=== PATIENT | male | born 1930 | race Caucasian/White ===

== ENCOUNTER → 2016-08-20 | Outpatient (CLI) | payer MEDICARE, MEDICAID ==
[~2016-08-20] MED LIST: ACIFEX; ASPI-84; ERGO400C PO; FLAXSEED OIL; IBP600T1; LISI20TA PO; OMG1KC; ONDAN4ODT PO; SCOP1PAT TD; UBID100C8
== END ==
LOC: FS 13:26
PROVIDERS: ATTEND Internal Medicine Hematology & Oncology
DX: D50.0 Iron deficiency anemia secondary to blood loss (chronic) (principal); Z85.048 Personal history of other malignant neoplasm of rectum, rectosigmoid junction, and anus; Z85.46 Personal history of malignant neoplasm of prostate; Z79.899 Other long term (current) drug therapy
CPT/HCPCS: 99213

== ENCOUNTER 2020-11-27 16:35 | Inpatient (IN) | payer MEDICAID, MEDICARE ==
[2020-11-27] VITALS (14 sets, daily range): BP systolic 156–186; BP diastolic 74–104
[~2020-11-27] VITALS: Ht 175 cm; Wt 90.0 kg
[~2020-11-27 16:35] MED LIST changes: -ASPI-84; +ASPI-84 PO
--- NOTE | 2020-11-27 16:49 | ED Cough/URI ---
General Chief Complaint: Fever-Adult/Adol Stated Complaint: LATHARGIC Source: patient Exam Limitations: no limitations History of Present Illness Date Seen by Provider: Nov 27, 2020 Time Seen by Provider: 16:47 Initial Comments To ER with reports that he is lethargic. He was initially seen at [facility] [place] [facility] urgent care where he was found to be febrile at 101.2 and to have a cough. His oxygen saturation was noted to be 88%. They establish an IV and hung a liter of fluids which are infusing upon arrival to ER. Patient tested negative for Covid there. He had both Covid vaccinations most recently in July of this year. Timing/Duration: constant Severity/Quality: mild Associated Symptoms: cough Allergies and Home Medications Allergies Coded Allergies: Niacin (Verified Allergy, Unknown, 12/27/08) Penicillins (Verified Allergy, Unknown, 12/27/08) Snvmpbz-Lte-Xoa Reductase Inhibitor (Verified Allergy, Unknown, 12/27/08) Sulfa (Sulfonamide Antibiotics) (Verified Allergy, Unknown, 12/27/08) Home Medications Ondansetron Hcl 4 Mg Tab, 4 MG PO Q4H FOR NAUSEA AND VOMITING Prescribed by: NIRANJAN OTT on 06/04/112139 Scopolamine Hcl 1 Patch .72 H Patch.td72, 1 EA TD Q3D FOR DIZZINESS Prescribed by: NIRANJAN OTT on 06/04/112139 Patient Home Medication List Home Medication List Reviewed: Yes Review of Systems Review of Systems Constitutional: see HPI, fever EENTM: see HPI Respiratory: see HPI, cough Genitourinary: no symptoms reported Musculoskeletal: no symptoms reported Skin: no symptoms reported Psychiatric/Neurological: No Symptoms Reported Hematologic/Lymphatic: No Symptoms Reported Physical Exam Vital Signs - First Documented 11/27/20 11/27/20 16:42 16:57 Temp 37.5 Pulse 76 Resp 20 B/P (MAP) 94/48 (63) Pulse Ox 96 O2 Delivery Room Air O2 Flow Rate 2.00 Capillary Refill : Height: '" Weight: lbs. oz. kg; BMI Method: General Appearance: WD/WN, no apparent distress, other (Upon arrival to ER he is alert conversing with us appropriately and pleasant. He states that he feels fine and is not sure why he is here. His blood pressure is 76/40. IV fluids are infusing. There is no pedal edema. 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 Bowel sounds are normal and abdomen is nontender.) Eyes: Bilateral Eye Normal Inspection, Bilateral Eye PERRL, Bilateral Eye EOMI HEENT: PERRL/EOMI, normal ENT inspection Neck: non-tender, full range of motion Respiratory: no respiratory distress, no accessory muscle use, crackles (Bibasilar) Extremities: normal range of motion, non-tender; No pedal edema Neurologic/Psychiatric: alert, normal mood/affect Skin: normal color, warm/dry Focused Exam Lactate Level 11/27/20 16:48: Lactic Acid Level 1.51 Lactic Acid Level Laboratory Tests Test 11/27/20 16:48 Lactic Acid Level 1.51 MMOL/L (0.50-2.00) Progress/Results/Core Measures Suspected Sepsis SIRS Temperature: Pulse: Respiratory Rate: Laboratory Tests 11/27/20 16:48: White Blood Count 12.0H Blood Pressure / Mean: 11/27/20 16:48: Lactic Acid Level 1.51 Laboratory Tests 11/27/20 16:48: Creatinine 1.82H, INR Comment 1.2, Platelet Count 157, Total Bilirubin 0.6 Results/Orders Lab Results Laboratory Tests Test 11/27/20 16:48 11/27/20 17:05 Range/Units White Blood Count 12.0 H 4.3-11.0 10^3/uL Red Blood Count 2.96 L 4.30-5.52 10^6/uL Hemoglobin 9.9 L 13.3-17.7 g/dL Hematocrit 30 L 40-54 % Mean Corpuscular Volume 101 H 80-99 fL Mean Corpuscular Hemoglobin 33 25-34 pg Mean Corpuscular Hemoglobin Concent 33 32-36 g/dL Red Cell Distribution Width 13.0 10.0-14.5 % Platelet Count 157 130-400 10^3/uL Mean Platelet Volume 10.3 9.0-12.2 fL Immature Granulocyte % (Auto) 1 % Neutrophils (%) (Auto) 91 H 42-75 % Lymphocytes (%) (Auto) 3 L 12-44 % Monocytes (%) (Auto) 5 0-12 % Eosinophils (%) (Auto) 0 0-10 % Basophils (%) (Auto) 0 0-10 % Neutrophils # (Auto) 10.9 H 1.8-7.8 10^3/uL Lymphocytes # (Auto) 0.4 L 1.0-4.0 10^3/uL Monocytes # (Auto) 0.6 0.0-1.0 10^3/uL Eosinophils # (Auto) 0.0 0.0-0.3 10^3/uL Basophils # (Auto) 0.0 0.0-0.1 10^3/uL Immature Granulocyte # (Auto) 0.1 0.0-0.1 10^3/uL Neutrophils % (Manual) 93 % Lymphocytes % (Manual) 3 % Monocytes % (Manual) 3 % Band Neutrophils 1 % Blood Morphology Comment NORMAL Prothrombin Time 15.4 H 12.2-14.7 SEC INR Comment 1.2 0.8-1.4 Activated Partial Thromboplast Time 32 24-35 SEC Sodium Level 141 135-145 MMOL/L Potassium Level 4.1 3.6-5.0 MMOL/L Chloride Level 108 H 98-107 MMOL/L Carbon Dioxide Level 23 21-32 MMOL/L Anion Gap 10 5-14 MMOL/L Blood Urea Nitrogen 23 H 7-18 MG/DL Creatinine 1.82 H 0.60-1.30 MG/DL Estimat Glomerular Filtration Rate 35 BUN/Creatinine Ratio 13 Glucose Level 120 H 70-105 MG/DL Lactic Acid Level 1.51 0.50-2.00 MMOL/L Calcium Level 8.2 L 8.5-10.1 MG/DL Corrected Calcium 8.6 8.5-10.1 MG/DL Total Bilirubin 0.6 0.1-1.0 MG/DL Aspartate Amino Transf (AST/SGOT) 16 5-34 U/L Alanine Aminotransferase (ALT/SGPT) 14 0-55 U/L Alkaline Phosphatase 42 40-136 U/L B-Type Natriuretic Peptide 241.4 H <100.0 PG/ML Total Protein 5.8 L 6.4-8.2 GM/DL Albumin 3.5 3.2-4.5 GM/DL Procalcitonin 20.62 H <0.10 NG/ML Urine Color YELLOW Urine Clarity CLEAR Urine pH 5.5 5-9 Urine Specific [place] >=1.030 1.016-1.022 Urine Protein 1+ H NEGATIVE Urine Glucose (UA) NEGATIVE NEGATIVE Urine Ketones TRACE H NEGATIVE Urine Nitrite POSITIVE H NEGATIVE Urine Bilirubin NEGATIVE NEGATIVE Urine Urobilinogen 0.2 < = 1.0 MG/DL Urine Leukocyte Esterase 2+ H NEGATIVE Urine RBC (Auto) TRACE-I NEGATIVE Urine RBC NONE /HPF Urine WBC >100 H /HPF Urine Squamous Epithelial Cells 0-2 /HPF Urine Crystals NONE /LPF Urine Bacteria MODERATE H /HPF Urine Casts NONE /LPF Urine Mucus NEGATIVE /LPF Urine Culture Indicated CULTURE PENDING My Orders Orders - AGATHA VALLE ASSOCIATE SOFTWARE DEVELOPMENT ENGINEER Cbc With Automated Diff (11/27/20 16:44) Comprehensive Metabolic Panel (11/27/20 16:44) Blood Culture (11/27/20 16:44) Sputum Culture (11/27/20 16:44) Urinalysis (11/27/20 16:44) Urine Culture (11/27/20 16:44) Protime With Inr (11/27/20 16:44) Partial Thromboplastin Time (11/27/20 16:44) Chest 1 View, Ap/Pa Only (11/27/20 16:44) Ed Iv/Invasive Line Start (11/27/20 16:44) Vital Signs Adult Sepsis Patie Q15M (11/27/20 16:44) O2 (11/27/20 16:44) Remove Rings In Anticipation O (11/27/20 16:44) Lactic Acid Analyzer (11/27/20 16:44) BNP (11/27/20 16:44) Procalcitonin (Pct) (11/27/20 16:44) Manual Differential (11/27/20 16:48) Lactated Ringers (Lr 1000 Ml Iv Solution (11/27/20 17:15) Lactated Ringers (Lr 1000 Ml Iv Solution (11/27/20 18:15) Ceftriaxone (Rocephin) (11/27/20 18:15) Medications Given in ED Current Medications Medications Dose Ordered Sig/Matt Route Start Time Stop Time Status Last Admin Dose Admin Ceftriaxone Sodium 1000 mg/ Sterile Water 10 ml @ 200 mls/hr ONCE ONCE IV 11/27/20 18:15 11/27/20 18:17 DC 11/27/20 18:18 200 MLS/HR Vital Signs/I&O 11/27/20 11/27/20 11/27/20 16:42 16:57 18:34 Temp 37.5 Pulse 76 74 Resp 20 14 B/P (MAP) 94/48 (63) 122/58 (79) Pulse Ox 96 97 95 O2 Delivery Room Air Nasal Cannula Room Air O2 Flow Rate 2.00 Capillary Refill : Departure Communication (Admissions) 1808-I updated the patient's son Yung on status of severe sepsis with urinary tract infection. 1 g of Rocephin ordered. EMS gave 1 L of IV fluid. We then gave 1 L of LR here and I ordered a third bag with 500 mils to be given as a bolus and then the remainder at 125/h. This will achieve 30 mL/kg. After 1.5 L that he has received he has sustained his blood pressure in the 120s systolic. Spoke with Dr. Flannery will admit on severe sepsis protocol here. His reports that he is DO NOT RESUSCITATE status. His oxygen has remained at 100% on 1.5 L of supplemental oxygen here. Chest x-ray is clear without previous lung history. I will turn the oxygen off and see what his saturation does. He is certainly not dyspneic. 1848- SpO2 93% on room air Impression Primary Impression: UTI (urinary tract infection) Additional Impression: Severe sepsis Disposition: ADMITTED INPATIENT Condition: Stable Admissions Decision to Admit Reason: Admit from ER (General) Decision to Admit/Date: Nov 27, 2020 Time/Decision to Admit Time: 18:09 Departure-Patient Inst. Referrals: SEVERINO TIERNEY MD (PCP) Primary Care Physician YUNG BARRAGAN DO (Family) Primary Care Physician AGATHA VALLE APRN Nov 27, 2020 16:49
[2020-11-27 16:59] LABS: BASOPHILS % (AUTO) 0 % (0-10); EOSINOPHILS % (AUTO) 0 % (0-10); HEMATOCRIT 30 % (40-54); HEMOGLOBIN 9.9 g/dL (13.3-17.7); LYMPHOCYTES # (AUTO) 0.4 10^3/uL (1.0-4.0); LYMPHOCYTES % (AUTO) 3 % (12-44); MEAN CORPUSCULAR HEMOGLOBIN 33 pg (25-34); MEAN CORPUSCULAR HGB CONC 33 g/dL (32-36); MEAN CORPUSCULAR VOLUME 101 fL (80-99); MEAN PLATELET VOLUME 10.3 fL (9.0-12.2); MONOCYTES # (AUTO) 0.6 10^3/uL (0.0-1.0); MONOCYTES % (AUTO) 5 % (0-12); NEUTROPHILS # (AUTO) 10.9 10^3/uL (1.8-7.8); NEUTROPHILS % (AUTO) 91 % (42-75); PLATELET COUNT 157 10^3/uL (130-400)
[2020-11-27 17:15] LABS: INR 1.2 (0.8-1.4); PROTHROMBIN TIME PATIENT 15.4 SEC (12.2-14.7)
[2020-11-27] MEDS ORDERED: LACTATED RINGERS 1,000 ML IV SCH ×2 (17:15→18:15)
[2020-11-27 17:17] LABS: BILIRUBIN,URINE NEGATIVE (NEGATIVE); CLARITY,URINE CLEAR; COLOR,URINE YELLOW; GLUCOSE, URINE (UA) NEGATIVE (NEGATIVE); KETONES,URINE TRACE (NEGATIVE); LEUKOCYTE ESTERASE ,URINE 2+ (NEGATIVE); NITRITE,URINE POSITIVE (NEGATIVE); PH,URINE 5.5 (5-9); PROTEIN,URINE 1+ (NEGATIVE)
--- NOTE | 2020-11-27 17:21 | Diagnostic Imaging Report ---
INDICATION: Sepsis Frontal chest obtained at 05:01 p.m. There is no prior study for comparison. There is cardiomegaly and mild central vascular prominence. There are mild chronic appearing increased interstitial markings. There is no consolidation, pneumothorax or pleural fluid. IMPRESSION: Cardiomegaly and chronic changes with no acute abnormality. Dictated by: Dictated on workstation # [id number]
[2020-11-27 17:24] LABS: ALBUMIN 3.5 GM/DL (3.2-4.5)
[2020-11-27 17:25] LABS: POTASSIUM 4.1 MMOL/L (3.6-5.0)
[2020-11-27 17:26] LABS: CALCIUM 8.2 MG/DL (8.5-10.1)
[2020-11-27 17:27] LABS: TOTAL PROTEIN 5.8 GM/DL (6.4-8.2)
[2020-11-27 17:29] LABS: BILIRUBIN,TOTAL 0.6 MG/DL (0.1-1.0)
[2020-11-27 17:30] LABS: BACTERIA,URINE MODERATE /HPF; SQUAMOUS EPITHELIAL CELL,UR 0-2 /HPF; WBC,URINE >100 /HPF
[2020-11-27 17:31] LABS: CREATININE SERUM 1.82 MG/DL (0.60-1.30)
[2020-11-27] MEDS ORDERED: cefTRIAXone 1,000 MG in WATER (STERILE) FOR INJECTION 10 ML IV ONE (18:15)
[2020-11-27 18:35] LABS: BAND NEUTROPHILS 1 %; LYMPHOCYTES % (MANUAL) 3 %; MONOCYTES % (MANUAL) 3 %; NEUTROPHILS % (MANUAL) 93 %; RBC MORPH NORMAL
[2020-11-27] MEDS ORDERED: CATHETER FLUSH 10 ML SYR IV PRN (20:15)
[2020-11-27] MEDS ORDERED: ONDANSETRON 4 MG/2 ML (SDV) Z0FRAN IV PRN (20:15)
[2020-11-27] MEDS: LACTATED RINGERS 1,000 ML IV SCH ×2 (20:32→23:32)
[2020-11-27] MEDS ORDERED: FERR325T24 PO (22:49)
[2020-11-27] MEDS ORDERED: PANT40TA52 PO (22:49)
[2020-11-27] MEDS ORDERED: LOSA25TA41 PO (22:49)
[2020-11-27] MEDS ORDERED: QUET100T PO ×2 (22:49)
[2020-11-27] MEDS ORDERED: QUET200T PO (22:49)
[2020-11-27] MEDS ORDERED: DONE10TA41 PO (22:49)
[2020-11-27] MEDS ORDERED: ESCI20TA PO (22:49)
[2020-11-28] VITALS (7 sets, daily range): BP systolic 119–181; BP diastolic 56–80
[2020-11-28] MEDS: ACETAMINOPHEN 325 MG TABLET PO PRN ×2 (05:32→16:49)
[2020-11-28 06:30] LABS: BASOPHILS % (AUTO) 0 % (0-10); EOSINOPHILS % (AUTO) 0 % (0-10); HEMATOCRIT 27 % (40-54); HEMOGLOBIN 9.1 g/dL (13.3-17.7); LYMPHOCYTES # (AUTO) 0.6 10^3/uL (1.0-4.0); LYMPHOCYTES % (AUTO) 7 % (12-44); MEAN CORPUSCULAR HEMOGLOBIN 33 pg (25-34); MEAN CORPUSCULAR HGB CONC 33 g/dL (32-36); MEAN CORPUSCULAR VOLUME 99 fL (80-99); MEAN PLATELET VOLUME 10.8 fL (9.0-12.2); MONOCYTES # (AUTO) 0.6 10^3/uL (0.0-1.0); MONOCYTES % (AUTO) 7 % (0-12); NEUTROPHILS # (AUTO) 7.2 10^3/uL (1.8-7.8); NEUTROPHILS % (AUTO) 85 % (42-75); PLATELET COUNT 131 10^3/uL (130-400); WHITE BLOOD COUNT 8.5 10^3/uL (4.3-11.0)
[2020-11-28 06:47] LABS: CALCIUM 8.1 MG/DL (8.5-10.1); CREATININE SERUM 1.63 MG/DL (0.60-1.30); POTASSIUM 4.3 MMOL/L (3.6-5.0)
[2020-11-28] MEDS: cefTRIAXone 2,000 MG in WATER (STERILE) FOR INJECTION 20 ML IV SCH (08:31)
[2020-11-28] MEDS: LACTATED RINGERS 1,000 ML IV SCH ×2 (08:32→16:49)
--- NOTE | 2020-11-28 11:26 | History & Physical-Hospitalist ---
History of Present Illness HPI/Chief Complaint Jf Hinds is an 89-year-old male with past medical history of anemia, chronic kidney disease, colostomy, who presented with lethargy. He had also reportedly been having fevers. He had a cough. He denies shortness of breath. He denies chest pain. He denies abdominal pain, nausea, vomiting, and diarrhea. He krystle es dysuria. He has no other complaints or concerns. Source: patient Exam Limitations: no limitations Date Seen 11/28/20 Time Seen by a Provider: 09:15 Attending Physician Galindo Delgado MD PCP Suyapa Dodson MD Referring Physician Date of Admission Nov 27, 2020 at 18:07 Home Medications & Allergies Home Medications Reviewed patient Home Medication Reconciliation performed by pharmacy medication reconciliations it help desk technician and/or nursing. Patients Allergies have been reviewed. Allergies Allergies Coded Allergies Penicillins (Verified Allergy, Unknown, 12/27/08) Nvczjbi-Sqq-Urv Reductase Inhibitor (Verified Allergy, Unknown, 12/27/08) Sulfa (Sulfonamide Antibiotics) (Verified Allergy, Unknown, 12/27/08) niacin (Verified Allergy, Unknown, 12/27/08) Past Izgxcec-Usdnwe-Cluaat Hx Patient Social History Tobacco Use?: No Smoking Status: Former Smoker Substance use?: No Alcohol Use?: No Alcohol type: Beer Alcohol Frequency: Daily Pt feels they are or have been: No Immunizations Up To Date First/Initial COVID19 Vaccinat: July 2020 Second COVID19 Vaccination Marco: July 2020 Current Status Advance Directives: Yes Advance Directive Location: Home Communicates: Verbally Primary Language: Bangladeshi Preferred Spoken Language: Bangladeshi Is interpretation needed?: No Past Medical History Surgeries: Abdominal (colostomy) Family Medical History No Pertinent Family Hx Review of Systems Constitutional: weakness EENTM: no symptoms reported Respiratory: cough Cardiovascular: no symptoms reported Gastrointestinal: no symptoms reported Genitourinary: no symptoms reported Musculoskeletal: no symptoms reported Skin: no symptoms reported Psychiatric/Neurological: No Symptoms Reported Physical Exam Physical Exam Vital Signs Vital Signs - First Documented 11/27/20 11/27/20 16:42 16:57 Temp 37.5 Pulse 76 Resp 20 B/P (MAP) 94/48 (63) Pulse Ox 96 O2 Delivery Room Air O2 Flow Rate 2.00 Capillary Refill : Less Than 3 Seconds Height, Weight, BMI Height: '" Weight: lbs. oz. kg; 29.38 BMI Method: General Appearance: No Apparent Distress, WD/WN HEENT: PERRL/EOMI, Pharynx Normal Neck: Normal Inspection, Supple Respiratory: Lungs Clear, Normal Breath Sounds, No Respiratory Distress Cardiovascular: Regular Rate, Rhythm, No Edema, No Murmur Gastrointestinal: Normal Bowel Sounds, Non Tender, Soft, Other (colostomy left lower quadrant) Extremity: Normal Inspection, Non Tender, No Pedal Edema Neurologic/Psychiatric: Alert, Oriented x3, No Motor/Sensory Deficits, Normal Mood/Affect Skin: Normal Color, Warm/Dry Results Results/Procedures Labs Laboratory Tests 11/27/20 16:48 11/28/20 05:30 Patient resulted labs reviewed. Imaging: Reviewed Imaging Report Assessment/Plan Admission Diagnosis Sepsis due to UTI Admission Status: Inpatient Order (span 2 midnights) Reason for Inpatient Admission: IV antibiotics Assessment and Plan Sepsis due to UTI SIRS+ with fever and leukocytosis UA consistent with UTI Urine culture pending Started on Rocephin IV fluids Acute kidney injury superimposed on chronic kidney disease Cr elevated, unknown baseline, reportedly some level of CKD per family Improving with fluids Hyperglycemia A1C pending Anemia Hgb stable, 9.1 Iron/B12/folate pending DVT prophylaxis: Lovenox Diagnosis/Problems Diagnosis/Problems (1) Sepsis due to urinary tract infection Status: Acute (2) Acute kidney injury superimposed on chronic kidney disease Status: Acute (3) Hyperglycemia Status: Acute (4) Anemia Status: Acute Qualifiers: Anemia type: unspecified type Qualified Codes: D64.9 - Anemia, unspecified GALINDO DELGADO MD Nov 28, 2020 11:26
[2020-11-28] MEDS ORDERED: LOSA50TA63 PO (13:22)
[2020-11-28] MEDS ORDERED: MULT-1136 PO (13:22)
[2020-11-28] MEDS ORDERED: CHOL100048 PO (13:22)
[2020-11-28] MEDS ORDERED: ASCO-262 PO (13:22)
[2020-11-28] MEDS ORDERED: ASPI-1238 PO (13:22)
[2020-11-28] MEDS ORDERED: FERR324T4 PO (13:28)
[2020-11-28] MEDS ORDERED: cefTRIAXone 1,000 MG/SWFI 10 ML IV PUSH IV SCH ×2 (18:00)
[2020-11-29] MEDS: LACTATED RINGERS 1,000 ML IV SCH (01:16)
[2020-11-29 03:30] VITALS: BP 167/75
[2020-11-29] MEDS ORDERED: IRON SUCROSE 200 MG/10 ML (VENOFER) VIAL IV ONE (07:00)
[2020-11-29 07:15] VITALS: BP 178/79
[2020-11-29 07:46] LABS: BASOPHILS % (AUTO) 0 % (0-10); EOSINOPHILS # (AUTO) 0.1 10^3/uL (0.0-0.3); EOSINOPHILS % (AUTO) 1 % (0-10); HEMOGLOBIN 10.2 g/dL (13.3-17.7); LYMPHOCYTES # (AUTO) 0.8 10^3/uL (1.0-4.0); NEUTROPHILS # (AUTO) 5.3 10^3/uL (1.8-7.8)
[2020-11-29 07:47] LABS: HEMATOCRIT 31 % (40-54); LYMPHOCYTES % (AUTO) 12 % (12-44); MEAN CORPUSCULAR HEMOGLOBIN 33 pg (25-34); MEAN CORPUSCULAR HGB CONC 33 g/dL (32-36); MEAN CORPUSCULAR VOLUME 101 fL (80-99); MEAN PLATELET VOLUME 9.9 fL (9.0-12.2); MONOCYTES # (AUTO) 0.6 10^3/uL (0.0-1.0); MONOCYTES % (AUTO) 9 % (0-12); NEUTROPHILS % (AUTO) 77 % (42-75); PLATELET COUNT 142 10^3/uL (130-400); WHITE BLOOD COUNT 6.8 10^3/uL (4.3-11.0)
[2020-11-29] MEDS ORDERED: QUEtiapine 25 MG (SEROquel) TAB IMMEDIATE RELEASE PO SCH (08:00)
[2020-11-29] MEDS ORDERED: FERROUS SULF 325 MG (IRON) TAB PO SCH (08:00)
[2020-11-29 08:04] LABS: CALCIUM 8.4 MG/DL (8.5-10.1); CREATININE SERUM 1.38 MG/DL (0.60-1.30)
[2020-11-29] MEDS: cefTRIAXone 2,000 MG in WATER (STERILE) FOR INJECTION 20 ML IV SCH (08:54)
[2020-11-29] MEDS ORDERED: DONEPEZIL 10 MG (ARICEPT) TAB PO SCH (09:00)
[2020-11-29] MEDS ORDERED: PANTOPRAZOLE 40 MG (PROTONIX) TAB PO SCH (09:00)
[2020-11-29] MEDS ORDERED: LOSARTAN 25 MG (COZAAR) TAB PO SCH (09:00)
[2020-11-29] MEDS ORDERED: CEFD300C3 PO (11:37)
--- NOTE | 2020-11-29 11:43 | Discharge Summary ---
Discharge Summary Hospital Course Was the Problem List Reviewed?: Yes Problems/Dx: (1) Sepsis due to urinary tract infection Status: Acute (2) Acute kidney injury superimposed on chronic kidney disease Status: Acute (3) Anemia Status: Acute Qualifiers: Qualified Codes: D64.9 - Anemia, unspecified Hospital Course Date of Admission: Nov 27, 2020 at 18:07 Admission Diagnosis : Sepsis due to urinary tract infection Family Physician/Provider: Yung Hinds DO Date of Discharge: 11/29/20 Discharge Diagnosis: Sepsis due to urinary tract infection Hospital Course: Jf Hinds is an 89-year-old male who was admitted with sepsis due to urinary tract infection. He was started on IV antibiotics and improved rapidly. His u rine culture was growing probable Klebsiella. The final sensitivities were not back at the time of discharge. He was discharged home on a 1 week course of Omnicef. His course was complicated by acute kidney injury superimposed on chronic kidney disease. This improved with IV fluids. He was at iron deficiency anemia and was given a dose of IV Venofer. He should continue his or al iron supplementation. He should follow-up with his primary care physician. He was discharged home in stable condition. Labs and Pending Lab Test: Laboratory Tests 11/29/20 05:37: White Blood Count 6.8, Red Blood Count 3.08L, Hemoglobin 10.2L, Hematocrit 31L, Mean Corpuscular Volume 101H, Mean Corpuscular Hemoglobin 33, Mean Corpuscular Hemoglobin Concent 33, Red Cell Distribution Width 13.0, Platelet Count 142, Mean Platelet Volume 9.9, Immature Granulocyte % (Auto) 0, Neutrophils (%) (Auto) 77H, Lymphocytes (%) (Auto) 12, Monocytes (%) (Auto) 9, Eosinophils (%) (Auto) 1, Basophils (%) (Auto) 0, Neutrophils # (Auto) 5.3, Lymphocytes # (Auto) 0.8L, Monocytes # (Auto) 0.6, Eosinophils # (Auto) 0.1, Basophils # (Auto) 0.0, Immature Granulocyte # (Auto) 0.0, Percent Immature Platelet Fraction 4.7, Sodium Level 140, Potassium Level 4.0, Chloride Level 106, Carbon Dioxide Level 24, Anion Gap 10, Blood Urea Nitrogen 19H, Creatinine 1.38H, Estimat Glomerular Filtration Rate 49, BUN/Creatinine Ratio 14, Glucose Level 99, Calcium Level 8.4L Microbiology 11/27/20 Blood Culture - Preliminary, Resulted No growth 11/27/20 Urine Culture - Preliminary, Resulted Probable Klebsiella/Enterobact Home Meds Active Cefdinir 300 Mg Capsule 300 Mg PO BID 7 Days Reported Ferrous Sulfate 324 Mg Tablet. 324 Mg PO BID Vitamin D3 (Cholecalciferol (Vitamin D3)) 25 Mcg Capsule 50 Mcg PO 1300 Multivitamin 1 Each Tablet 1 Each PO 1300 Vitamin C (Ascorbate Calcium) 500 Mg Tablet 1,000 Mg PO 1300 Losartan Potassium 50 Mg Tablet 25 Mg PO DAILY TAKES OF A 50MG TAB Aspirin EC (Aspirin) 81 Mg Tablet. 81 Mg PO HS Seroquel (Quetiapine Fumarate) 100 Mg Tablet 200 Mg PO HS TAKES 2 (100MG) TABS Seroquel (Quetiapine Fumarate) 100 Mg Tablet 50 Mg PO 0800,1300 TAKES OF A 100MG TAB Pantoprazole Sodium 40 Mg Tablet.dr 40 Mg PO DAILY Lexapro (Escitalopram Oxalate) 20 Mg Tablet 10 Mg PO DAILY TAKES OF A 20MG TAB Donepezil HCl 10 Mg Tablet 10 Mg PO DAILY Assessment/Pt Instructions Take medications as prescribed. Complete your course of antibiotics even if you are feeling better. Follow-up with your primary care physician. Return with worsening weakness, confusion, or if you feel like you are getting worse. Discharge Planning: <30 minutes discharge planning Discharge Instructions Discharge Diet: No Restrictions Activity as Tolerated: Yes Discharge Physical Examination Vital Signs Vital Signs Date Time Temp Pulse Resp B/P (MAP) Pulse Ox O2 Delivery O2 Flow Rate FiO2 11/29/20 07:15 37.4 64 18 178/79 (112) 95 Room Air 11/27/20 16:57 2.00 General Appearance: No Apparent Distress, WD/WN Respiratory: Lungs Clear, Normal Breath Sounds, No Respiratory Distress Cardiovascular: Regular Rate, Rhythm, No Edema, No Murmur Gastrointestinal: Normal Bowel Sounds, Non Tender, Soft Extremity: Normal Inspection, Non Tender Skin: Normal Color, Warm/Dry Neurologic/Psychiatric: Alert, No Motor/Sensory Deficits, Normal Mood/Affect Allergies: Coded Allergies: Penicillins (Verified Allergy, Unknown, 12/27/08) Zdzajii-Gos-Rsk Reductase Inhibitor (Verified Allergy, Unknown, 12/27/08) Sulfa (Sulfonamide Antibiotics) (Verified Allergy, Unknown, 12/27/08) niacin (Verified Allergy, Unknown, 12/27/08) Copy Copies To 1: SEVERINO TIERNEY MD Discharge Summary Date of Admission Nov 27, 2020 at 18:07 Date of Discharge Discharge Date: Nov 29, 2020 Discharge Time: 11:42 Admission Diagnosis Sepsis due to UTI Discharge Diagnosis Sepsis due to UTI (1) Sepsis due to urinary tract infection Status: Acute (2) Acute kidney injury superimposed on chronic kidney disease Status: Acute (3) Anemia Status: Acute Qualifiers: Qualified Codes: D64.9 - Anemia, unspecified GALINDO DELGADO MD Nov 29, 2020 11:43
[2020-11-29 12:00] VITALS: BP 178/79
[2020-11-29] MEDS ORDERED: QUEtiapine 100 MG (SEROquel) TAB IMMEDIATE RELEASE PO SCH (21:00)
[2020-11-29] MEDS ORDERED: ASPIRIN E.C. 81 MG (ECOTRIN) TAB PO SCH (21:00)
== END 2020-11-29 12:00 | disposition home or self-care (01) | DRG 872 ==
LOC: EDUNIT# 16:35 → ER 16:36 → 4TH 18:07
PROVIDERS: ADMIT Internal Medicine; ATTEND Internal Medicine
DX: A41.59 Other Gram-negative sepsis (principal); N39.0 Urinary tract infection, site not specified; N17.9 Acute kidney failure, unspecified; K94.03 Colostomy malfunction; R65.20 Severe sepsis without septic shock; N18.9 Chronic kidney disease, unspecified; D63.1 Anemia in chronic kidney disease; R73.9 Hyperglycemia, unspecified; Z66 Do not resuscitate; D50.9 Iron deficiency anemia, unspecified; Z88.0 Allergy status to penicillin; Z88.2 Allergy status to sulfonamides; Z88.8 Allergy status to other drugs, medicaments and biological substances
CPT/HCPCS: 36415; 71045; 80048; 80053; 81000; 82607; 82728; 82746; 83036; 83540; 83550; 83605; 83880; 84145; 85007; 85025; 85027; 85610; 85730; 87040; 87077; 87088; 87186

== ENCOUNTER 2021-04-19 19:15 | Emergency (ER) | payer MEDICARE ==
[~2021-04-19] VITALS: Ht 180 cm; Wt 85.8 kg
[~2021-04-19 19:15] MED LIST changes: +ASCO-262 PO; +ASPI-1238 PO; +CEFD300C3 PO; +CHOL100048 PO; +DONE10TA41 PO; +ESCI20TA PO; +FERR324T4 PO; +FERR325T24 PO; +LOSA25TA41 PO; +LOSA50TA63 PO; +MULT-1136 PO; +PANT40TA52 PO; +QUET100T PO; +QUET200T PO
--- NOTE | 2021-04-19 20:09 | ED General ---
General Chief Complaint: Head/Cervical Problems Stated Complaint: RIGHT SIDE OF FACE NUMB/HEADACHE Source of Information: Patient History of Present Illness Date Seen by Provider: Apr 19, 2021 Time Seen by Provider: 19:30 Initial Comments Patient is 89-year-old male who presents with dizziness after falling 4 days ago and striking his face. Patient has a periorbital contusion with scleral hemorrhage. He denies headache, blurred vision or posterior neck pain. He was evaluated by his track repairer helper 3 days ago and was given a reassuring exam. Reports occasional dizziness when standing and dark urine. Neck pain shoulder pain when turning to the left. Denies nausea vomiting, chest pain shortness of breath. Patient is not on anticoagulation therapy but takes daily aspirin. No other symptoms or complaints Timing/Duration: 1/2 Hour Severity: Mild Modifying Factors: improves with Other Associated Systoms: Other Allergies and Home Medications Allergies Coded Allergies: Penicillins (Verified Allergy, Unknown, 12/27/08) Pfjiumd-Ogt-Uxt Reductase Inhibitor (Verified Allergy, Unknown, 12/27/08) Sulfa (Sulfonamide Antibiotics) (Verified Allergy, Unknown, 12/27/08) niacin (Verified Allergy, Unknown, 12/27/08) Patient Home Medication List Home Medication List Reviewed: Yes Ascorbate Calcium (Vitamin C) 500 Mg Tablet, 1,000 MG PO 1300, (Reported) Entered as Reported by: WOLFGANG COLLAZO on 11/28/20 1322 Aspirin (Aspirin EC) 81 Mg Tablet., 81 MG PO HS, (Reported) Entered as Reported by: WOLFGANG COLLAZO on 11/28/20 1322 Cefdinir (Cefdinir) 300 Mg Capsule, 300 MG PO BID Prescribed by: GALINDO DELGADO on 11/29/20 1137 Cholecalciferol (Vitamin D3) (Vitamin D3) 25 Mcg Capsule, 50 MCG PO 1300, (Reported) Entered as Reported by: WOLFGANG COLLAZO on 11/28/20 1322 Donepezil HCl (Donepezil HCl) 10 Mg Tablet, 10 MG PO DAILY, (Reported) Entered as Reported by: BABAK CROSS on 11/27/202248 Escitalopram Oxalate (Lexapro) 20 Mg Tablet, 10 MG PO DAILY, (Reported) Entered as Reported by: BABAK CROSS on 11/27/202248 Ferrous Sulfate (Ferrous Sulfate) 324 Mg Tablet., 324 MG PO BID, (Reported) Entered as Reported by: WOLFGANG COLLAZO on 11/28/20 1328 Losartan Potassium (Losartan Potassium) 50 Mg Tablet, 25 MG PO DAILY, (Reported) Entered as Reported by: WOLFGANG COLLAZO on 11/28/20 1322 Multivitamin (Multivitamin) 1 Each Tablet, 1 EACH PO 1300, (Reported) Entered as Reported by: WOLFGANG COLLAZO on 11/28/20 132 Pantoprazole Sodium (Pantoprazole Sodium) 40 Mg Tablet., 40 MG PO DAILY, (Reported) Entered as Reported by: BABAK CROSS on 11/27/202248 Quetiapine Fumarate (Seroquel) 100 Mg Tablet, 50 MG PO 0800,1300, (Reported) Entered as Reported by: BABAK CROSS on 11/27/202248 Quetiapine Fumarate (Seroquel) 100 Mg Tablet, 200 MG PO HS, (Reported) Entered as Reported by: BABAK CROSS on 11/27/202248 Review of Systems Review of Systems Constitutional: see HPI EENTM: see HPI Respiratory: see HPI Cardiovascular: see HPI Gastrointestinal: see HPI Genitourinary: see HPI Musculoskeletal: see HPI Skin: see HPI Psychiatric/Neurological: See HPI Hematologic/Lymphatic: See HPI Immunological/Allergic: see HPI All Other Systems Reviewed Negative Unless Noted: Yes Past Cswjrib-Qvnjkr-Vdcrgt Hx Patient Social History Tobacco Use?: Yes Use of E-Cig and/or Vaping dev: No Substance use?: No Alcohol Use?: Yes Alcohol type: Beer Alcohol Frequency: Daily Pt feels they are or have been: No Past Medical History Surgery/Hospitalization HX: Colostomy to left lower abd, hernia repair, Prostate and colon cancer Abdominal Family Medical History No Pertinent Family Hx Physical Exam Vital Signs Vital Signs - First Documented 04/19/21 19:24 Temp 36.4 Pulse 90 Resp 16 B/P (MAP) 176/77 (110) Pulse Ox 95 O2 Delivery Room Air Capillary Refill : Height, Weight, BMI Height: '" Weight: lbs. oz. kg; 29.38 BMI Method: General Appearance: No Apparent Distress, WD/WN Eyes: Right Eye Other (Right scleral hemorrhage); Bilateral Eye Normal Inspection, Bilateral Eye PERRL, Bilateral Eye EOMI HEENT: PERRL/EOMI, Pharynx Normal Neck: Full Range of Motion, Tender Lateral; No Tender Midline Respiratory: Chest Non Tender, Lungs Clear Cardiovascular: Regular Rate, Rhythm Neurologic/Psychiatric: Alert, Oriented x3 Progress/Results/Core Measures Suspected Sepsis SIRS Temperature: Pulse: Respiratory Rate: Blood Pressure / Mean: Results/Orders Lab Results Laboratory Tests Test 04/19/21 20:20 Range/Units Urine Color YELLOW Urine Clarity CLEAR Urine pH 6.0 5-9 Urine Specific [place] 1.020 1.016-1.022 Urine Protein NEGATIVE NEGATIVE Urine Glucose (UA) NEGATIVE NEGATIVE Urine Ketones TRACE H NEGATIVE Urine Nitrite NEGATIVE NEGATIVE Urine Bilirubin NEGATIVE NEGATIVE Urine Urobilinogen 0.2 < = 1.0 MG/DL Urine Leukocyte Esterase NEGATIVE NEGATIVE Urine RBC (Auto) NEGATIVE NEGATIVE Urine RBC NONE /HPF Urine WBC 0-2 /HPF Urine Squamous Epithelial Cells 0-2 /HPF Urine Crystals NONE /LPF Urine Bacteria NEGATIVE /HPF Urine Casts PRESENT /LPF Urine Hyaline Casts 10-25 H /LPF Urine Mucus MODERATE H /LPF Urine Culture Indicated NO My Orders Orders - MURTAZA PEOPLES DO Ct Head/Cervical Spine Wo (04/19/21 19:30) Ua Culture If Indicated (04/19/21 19:45) Vital Signs/I&O 04/19/21 19:24 Temp 36.4 Pulse 90 Resp 16 B/P (MAP) 176/77 (110) Pulse Ox 95 O2 Delivery Room Air Capillary Refill : Departure Impression Primary Impression: Scleral hemorrhage of right eye Additional Impression: Periorbital contusion of right eye Disposition: 01 HOME, SELF-CARE Condition: Stable Departure-Patient Inst. Decision time for Depature: 20:37 Referrals: SEVERINO TIERNEY MD (PCP) Primary Care Physician BETSY BARRAGAN DO (Family) Primary Care Physician Patient Instructions: [facility] ED Add. Discharge Instructions: Jf was evaluated in the emergency department for dizziness, facial and head injury. A CT scan of his head and neck was performed and does not show an acute injury. A urinalysis was performed and does show evidence of dehydration. Please increase daily fluid intake, be careful when transitioning from sitting to standing position and follow-up with his PCP early next week. If Jf develops any new or worsening symptoms, return to the emergency department. All discharge instructions reviewed with patient and/or family. Voiced understanding. MURTAZA PEOPLES 9, 2021 20:09
--- NOTE | 2021-04-19 20:14 | Diagnostic Imaging Report ---
PROCEDURE: CT head and CT cervical spine without contrast. TECHNIQUE: Multiple contiguous axial images were obtained through the brain and cervical spine without the use of intravenous contrast. Sagittal and coronal reformations through the cervical spine were then performed. Auto Exposure Controls were utilized during the CT exam to meet ALARA standards for radiation dose reduction. INDICATION: Fall. Dizziness. Head and neck pain. COMPARISON: 01/18/2013. 06/04/2011. FINDINGS: CT HEAD: No large acute territorial ischemia, mass, or hemorrhage. 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 No midline shift or mass effect. Decreased attenuation is seen in the periventricular and subcortical white matter. The ventricles and cortical sulci are prominent. The basilar cisterns are patent and unremarkable. The calvarium is intact. Frothy secretions are seen in the right maxillary sinus. The mastoid air cells are clear. CT CERVICAL SPINE: No acute fracture or dislocation is seen in the cervical spine. No focal osseous lesions. Vertebral body heights are well-maintained. The craniocervical junction is well-maintained. Mild degenerative changes are seen in the cervical spine with disc osteophyte complexes and uncovertebral arthropathy. Soft tissues of the neck are unremarkable. The included lung apices are clear. IMPRESSION: 1. No hemorrhage or focal intra-axial mass. No CT evidence of large acute territorial ischemia. 2. No acute fracture or dislocation in the cervical spine. 3. Frothy secretions in the right maxillary sinus, suggestive of acute sinusitis. Dictated by: Dictated on workstation # [id number]
[2021-04-19 20:27] LABS: BILIRUBIN,URINE NEGATIVE (NEGATIVE); CLARITY,URINE CLEAR; COLOR,URINE YELLOW; GLUCOSE, URINE (UA) NEGATIVE (NEGATIVE); KETONES,URINE TRACE (NEGATIVE); LEUKOCYTE ESTERASE ,URINE NEGATIVE (NEGATIVE); NITRITE,URINE NEGATIVE (NEGATIVE); PROTEIN,URINE NEGATIVE (NEGATIVE)
[2021-04-19 20:33] LABS: BACTERIA,URINE NEGATIVE /HPF; SQUAMOUS EPITHELIAL CELL,UR 0-2 /HPF; WBC,URINE 0-2 /HPF
[2021-04-19 20:45] VITALS: BP 141/69
== END 2021-04-19 20:45 | disposition home or self-care (01) ==
LOC: EDUNIT# 19:15 → ER FS 19:20
DX: S05.11XA Contusion of eyeball and orbital tissues, right eye, initial encounter (principal); H11.31 Conjunctival hemorrhage, right eye; Z72.0 Tobacco use; Z79.82 Long term (current) use of aspirin; W22.8XXA Striking against or struck by other objects, initial encounter
CPT/HCPCS: 70450; 72125; 81000

== ENCOUNTER 2021-05-29 09:37 | Outpatient (CLI) | payer MEDICARE ==
[~2021-05-29] VITALS: Ht 170.2 cm; Wt 83.4 kg
[2021-05-29 09:47] VITALS: BP 143/69
[2021-05-29] MEDS ORDERED: ACETAMINOPHEN 500 MG TAB (TYLENOL) PO PRN (10:00)
[2021-05-29] MEDS ORDERED: CASIRIVIMAB/IMDEVIMAB 1,200 MG in NS (IVPB) 50 ML IV ONE (10:00)
[2021-05-29] MEDS ORDERED: ONDANSETRON 4 MG/2 ML (SDV) Z0FRAN IV PRN (10:00)
[2021-05-29] MEDS ORDERED: diphenhydrAMINE 50 MG/ML INJ (BENADRYL) IV PRN (10:00)
[2021-05-29] MEDS ORDERED: EPINEPHrine INJECTION 1 MG/ML AMP IM PRN (10:00)
[2021-05-29 10:49] VITALS: BP 182/77
== END 2021-05-29 11:04 ==
LOC: INFUSION 09:37
PROVIDERS: ATTEND Family Medicine
DX: U07.1 COVID-19 (principal)